=== PATIENT | female | born 1975 | race Caucasian/White ===

== ENCOUNTER 2016-09-27 15:49 | Emergency (ER) | payer MEDICARE, MEDICAID ==
[2016-09-27 16:09] VITALS: BP 123/75
--- NOTE | 2016-09-27 16:43 | UC ---
Respiratory Complaint HPI - HPI Summary HPI Summary: t presents with c/o cough, nasal congestion and myalgia X 1 week. Has history of asthma, is a smoker and is currently not taking any of her asthma medications. - History of Current Complaint Chief Complaint: UCRespiratory Stated Complaint: UPPER RESP Time Seen by Provider: 09/27/16 16:14 Hx Obtained From: Patient Hx Last Menstrual Period: none, had ablation ?: No Onset/Duration: Gradual Onset, Lasting Days Severity Initially: Mild Severity Currently: Mild Character: Cough: Nonproductive Aggravating Factors: Recumbent Position Associated Signs And Symptoms: Positive: URI - Risk Factors Pulmonary Embolism Risk Factors: Smoking Cardiac Risk Factors: Smoking Tuberculosis Risk Factors: Smoking - Allergies/Home Medications Allergies/Adverse Reactions: Allergies Allergy/AdvReac Type Severity Reaction Status Date / Time Amoxicillin Allergy Hives Verified 09/27/16 15:59 Ziprasidone [From Geodon] Allergy Shortness Verified 09/27/16 15:59 of Breath Aripiprazole [From Abilify] AdvReac Intermediate Agitation Verified 09/27/16 15: 59 Nortriptyline AdvReac Intermediate Hallucinati Verified 09/27/16 15:59 ons Lactose Intolerance (GI) AdvReac Unknown Unknown Verified 09/27/16 15:59 Reaction Details Home Medications: Home Medications Desvenlafaxine Succinate [Pristiq] 25 mg PO DAILY 09/27/16 [History Confirmed ] Gabapentin CAP(*) [Neurontin 100 mg CAP(*)] 200 mg PO BID 09/27/16 [History Confirmed 09/27/16] Ogomusmmwiaxy-Ghhhcylmiq-Gotef [Day Time/Nite Time Cold/F] 09/27/16 [History] Ptymavfwskzux-Aolrogastw-Mpicq [Nyquil Severe Cold/Flu 5-6.25-10-325 mg/15Ml] 09/27/16 [History] busPIRone TAB* [Buspar TAB *] 15 mg PO BID 09/27/16 [History Confirmed 09/27/16] PMH/Surg Hx/FS Hx/Imm Hx Previously Healthy: Yes Endocrine History Of: Denies: Diabetes, Thyroid Disease Cardiovascular History Of: Denies: Cardiac Disorders, Hypertension, Pacemaker/ICD Respiratory History Of: Reports: Asthma Denies: COPD GI/ History Of: Reports: Kidney Stones Denies: Gastroesophageal Reflux, Renal Disease Neurological History Of: Denies: CVA, Dementia, Seizures Psychological History Of: Reports: Anxiety, Depression, Bipolar Disorder Other History Of: Negative For: Anticoagulant Therapy - Surgical History Surgical History: Yes Surgery Procedure, Year, and Place: uterus ablation - Family History Known Family History: Positive: Other - positive [facility] for URI - Social History Alcohol Use: None Substance Use Type: Cocaine, Heroin, Marijuana, Prescribed Substance Use Comment - Amount & Last Used: no street drugs since December 19, 2013 Smoking Status (MU): Heavy Every Day Tobacco Smoker Type: Cigarettes - Immunization History Most Recent Influenza Vaccination: none Review of Systems Constitutional: Chills Skin: Negative Eyes: Negative ENT: Other - nasal congestion, Respiratory: Cough Cardiovascular: Negative Gastrointestinal: Negative Genitourinary: Negative Motor: Negative Neurovascular: Negative Musculoskeletal: Negative Neurological: Negative Psychological: Negative All Other Systems Reviewed And Are Negative: Yes Physical Exam Triage Information Reviewed: Yes Appearance: Well-Appearing Vital Signs: Initial Vital Signs Temp 98.4 F 09/27/16 16:04 Pulse 122 09/27/16 16:04 Resp 16 09/27/16 16:04 BP 123/75 09/27/16 16:04 Pulse Ox 94 09/27/16 16:04 Vital Signs Reviewed: Yes Eye Exam: Other ENT: Positive: Nasal congestion Neck exam: Normal Respiratory: Positive: Decreased breath sounds - bilateral bases, Wheezing Cardiovascular Exam: Normal Musculoskeletal Exam: Normal Neurological Exam: Normal Psychological Exam: Normal Skin Exam: Normal Diagnostic Evaluation - Laboratory O2 Sat by Pulse Oximetry: 94 Respiratory Course/Dx - Differential Dx/Diagnosis Differential Diagnosis/HQI/PQRI: Bronchitis, Influenza, Other - URI Provider Diagnoses: URI Discharge - Discharge Plan Condition: Stable Disposition: HOME Prescriptions: Albuterol HFA INHALER* [Ventolin HFA Inhaler*] 2 puff INH Q4H PRN #1 mdi PRN Reason: Sob/Wheezing Benzonatate CAP* [Tessalon CAP*] 100 mg PO TID #30 cap Montelukast Sodium TAB* [Singulair TAB*] 10 mg PO BEDTIME #20 tab predniSONE TAB* [Deltasone TAB*] 30 mg PO DAILY #12 tab Patient Education Materials: Asthma (ED), Upper Respiratory Infection (ED) Referrals: Sonia Angulo MD [Primary Care Provider] - Additional Instructions: You have indicated that you are out of your asthma maintenance and rescue medication. I have provided a short term supply for you. You need to follow up with your PCP for management of your asthma.
== END 2016-09-27 16:57 | disposition home or self-care (01) ==
LOC: UCEAST 15:49
DX: J06.9 Acute upper respiratory infection, unspecified (principal); Z88.1 Allergy status to other antibiotic agents; F17.210 Nicotine dependence, cigarettes, uncomplicated
CPT/HCPCS: 87502; 99212; G0463

== ENCOUNTER 2016-10-05 23:50 | Emergency (ER) | payer MEDICARE, MEDICAID ==
[2016-10-06] MEDS ORDERED: HYDROcodone/ACETAMIN 5-325 MG* 1 TAB PO ONE (00:35)
[2016-10-06] MEDS ORDERED: predniSONE TAB* 20 MG PO ONE (00:36)
--- NOTE | 2016-10-06 01:02 | ED ---
Back Pain - HPI Summary HPI Summary: Patient arrives to ED with CC of right sided rib pain after coughing fit. She states she has had upper respiratory symptoms for several days and has recently gotten worse. She has been coughing more and during a coughing fit earlier this evening she felt a "pop" and now is experiencing rib pain. She endorses SOB but denies chest pressure. She has not taken anything for the pain. On exam she is short of breath and wheezy. patient is a smoker. - History of Current Complaint Chief Complaint: EDChestWallPain Stated Complaint: FLU LIKE SYMPTOMS/RT SIDE PAIN Time Seen by Provider: 10/06/16 00:31 Hx Obtained From: Patient Hx Last Menstrual Period: none, had ablation Onset/Duration: Sudden Onset Onset/Duration: Started Minutes Ago Timing: Constant Back Pain Location: Is Discrete @ - right upper rib Severity Initially: Moderate Severity Currently: Moderate Pain Intensity: 6 Pain Scale Used: 0-10 Numeric Character: Sharp Aggravating Symptom(s): Movement, Bending Alleviating Symptom(s): Rest, Position Associated Signs And Symptoms: Positive: Negative - Risk Factors AAA Risk Factors: Negative TAD Risk Factors: Negative Cauda Equina Risk Factors: Negative Epidural Abscess Risk Factors: Negative - Allergies/Home Medications Allergies/Adverse Reactions: Allergies Allergy/AdvReac Type Severity Reaction Status Date / Time Amoxicillin Allergy Hives Verified 09/27/16 15:59 Ziprasidone [From Geodon] Allergy Shortness Verified 09/27/16 15:59 of Breath Aripiprazole [From Abilify] AdvReac Intermediate Agitation Verified 09/27/16 15: 59 Nortriptyline AdvReac Intermediate Hallucinati Verified 09/27/16 15:59 ons Lactose Intolerance (GI) AdvReac Unknown Unknown Verified 09/27/16 15:59 Reaction Details PMH/Surg Hx/FS Hx/Imm Hx Previously Healthy: Yes Endocrine/Hematology History: Denies: Hx Anticoagulant Therapy, Hx Diabetes, Hx Thyroid Disease Cardiovascular History: Denies: Hx Hypertension, Hx Pacemaker/ICD Respiratory History: Reports: Hx Asthma Denies: Hx Chronic Obstructive Pulmonary Disease (COPD) GI History: Reports: Hx Irritable Bowel History: Reports: Hx Kidney Stones Denies: Hx Renal Disease Musculoskeletal History: Reports: Other Musculoskeletal History - arthritis Sensory History: Denies: Hx Contacts or Glasses Opthamlomology History: Denies: Hx Contacts or Glasses Neurological History: Denies: Hx Dementia, Hx Seizures Psychiatric History: Reports: Hx Anxiety, Hx Depression, Hx Bipolar Disorder, Hx Suicide Attempt, Hx Substance Abuse Denies: Hx Eating Disorder - Surgical History Surgery Procedure, Year, and Place: uterus ablation Infectious Disease History: No Infectious Disease History: Denies: Hx Clostridium Difficile, Hx Hepatitis, Hx Human Immunodeficiency Virus (HIV), Hx of Known/Suspected MRSA, Hx Shingles, Hx Tuberculosis, Traveled Outside the [place] in Last 30 Days - Family History Known Family History: Positive: Other - positive [facility] for URI - Social History Occupation: Employed Full-time Lives: With Family Alcohol Use: None Hx Substance Use: Yes Substance Use Type: Reports: Cocaine, Heroin, Marijuana, Prescribed Substance Use Comment - Amount & Last Used: no street drugs since December 19, 2013 Hx Tobacco Use: Yes Smoking Status (MU): Heavy Every Day Tobacco Smoker Type: Cigarettes Review of Systems Constitutional: Negative ENT: Negative Positive: Shortness Of Breath, Cough Positive: no symptoms reported, see HPI Positive: Myalgia - right sided rib pain Skin: Negative Neurological: Negative Psychological: Normal All Other Systems Reviewed And Are Negative: Yes Physical Exam Triage Information Reviewed: Yes Vital Signs On Initial Exam: Initial Vitals Temp Pulse Resp BP Pulse Ox 97.9 F 112 20 144/98 96 10/05/16 23:54 10/05/16 23:54 10/05/16 23:54 10/05/16 23:54 10/05/16 23:54 Vital Signs Reviewed: Yes Appearance: Positive: Well-Appearing, Well-Nourished Skin: Positive: Warm, Skin Color Reflects Adequate Perfusion Head/Face: Positive: Normal Head/Face Inspection Eyes: Positive: EOMI, MEDARDO ENT: Positive: Pharynx normal, TMs normal Neck: Positive: Supple, No Lymphadenopathy Respiratory/Lung Sounds: Positive: Rhonchi, Wheezes Cardiovascular: Positive: RRR Abdomen Description: Positive: Nontender Musculoskeletal: Positive: Limited @, Pain @ - right sided rib pain which does not radiate Neurological: Positive: Normal, Sensory/Motor Intact, Alert, Oriented to Person Place, Time Psychiatric: Positive: Normal - Elliot Coma Scale Coma Scale Total: 15 Diagnostics - Vital Signs Vital Signs Temp Pulse Resp BP Pulse Ox 10/06/16 00:14 101 96 10/06/16 00:13 125/77 10/05/16 23:54 97.9 F 112 20 144/98 96 - Laboratory Lab Statement: Any lab studies that have been ordered have been reviewed, and results considered in the medical decision making process. Back Pain Course/Dx - Course Course Of Treatment: Patient given 50mg prednisone, 10mg hydrocodone. CXR shows possible bronchitis. Will treat with azithromax. CXR read by Dr. Arceo. RIB xray shows no acute fracture. DC with robitussin, prednisone, azithromycin and encouraged her at home albuterol inhaler. Patient agrees with plan. - Diagnoses Differential Diagnosis/HQI/PQRI: Positive: Strain, Sprain, Other - rib pain, rib fracture, acute bronchitis Provider Diagnoses: Rib pain, Cough Discharge - Discharge Plan Condition: Stable Disposition: HOME Prescriptions: Azithromycin TAB* [Zithromax TAB (Z-VALERIANO) 250 mg #6 tabs] 2 tab PO .TODAY, THEN 1 DAILY #1 valeriano guaiFENesin/CODIEN 100MG-10MG* [Robitussin AC 100Mg-10Mg*] 10 ml PO Q4H PRN # 180 udc MDD 60 PRN Reason: Cough predniSONE TAB* [Deltasone TAB*] 40 mg PO DAILY #8 tab MDD 2 Patient Education Materials: Rib Fracture (ED), Acute Bronchitis (ED) Referrals: Sonia Angulo MD [Primary Care Provider] - Additional Instructions: Prednisone for 4 days. Take in the AM. Albuterol inhaler 2 puffs every 4 hours as needed for shortness of breath. Azithromycin x 5 days. Use as directed. Robitussin with codeine for cough. Use as directed. Stop smoking. Drink plenty of fluids. 10+ glasses water or gatorade per day Rest. Ibuprofen 600mg three times daily with meals (this will not interfere with your other medications)
[2016-10-06] MEDS ORDERED: Azithromycin TAB* 250 MG PO ONE (01:17)
[2016-10-06] MEDS ORDERED: guaiFENesin/CODIEN 100MG-10MG* 5 ML UDC PO ONE (01:21)
[2016-10-06 01:45] VITALS: BP 120/93
--- NOTE | 2016-10-06 07:58 | RAD ---
INDICATION: Right rib pain COMPARISON: None TECHNIQUE: Multiple views of the ribs were obtained. FINDINGS: Bones: There is no evidence of acute rib fracture. LUNGS: The lungs are clear. There is no pneumothorax. Pleural spaces: There is no evidence of hemothorax. Other: None IMPRESSION: NO ACUTE RIB FRACTURE.
== END 2016-10-06 01:45 | disposition home or self-care (01) ==
LOC: ED 23:50
DX: R07.81 Pleurodynia (principal); M79.1 Myalgia; R06.02 Shortness of breath; R05 Cough; F17.210 Nicotine dependence, cigarettes, uncomplicated
CPT/HCPCS: 99282; A9270-GY; J7512

== ENCOUNTER 2018-01-18 23:36 | Emergency (ER) | payer MEDICARE, MEDICAID ==
[2018-01-19] MEDS ORDERED: NS 0.9% 1000 ML* 1,000 ML IV ONE (01:32)
[2018-01-19] MEDS ORDERED: Clindamycin 900 MG IVPREMIX(* 900 MG/50 ML SDV IV ONE (01:36)
[2018-01-19] MEDS ORDERED: Ketorolac INJ* 30 MG/ML 1 ML VIAL IV PUSH ONE (01:40)
[2018-01-19 02:20] LABS: ABS Basophils 0.1 10^3/ul (0-0.2); ABS Eosinophils 0.2 10^3/ul (0-0.6); ABS Lymphocytes 3.5 10^3/ul (1.0-4.8); ABS Monocytes 0.8 10^3/ul (0-0.8); ABS Neutrophils 7.9 10^3/ul (1.5-7.7); ABS Nucleated RBC 0 10^3/ul; Eosinophil % 1.7 % (0-6); Hematocrit 42 % (35-47); Hemoglobin 14.5 g/dl (12.0-16.0); Lymphocyte % 27.8 % (25-47); Mean Corpuscular HGB Conc 35 g/dl (31-36); Mean Corpuscular Hemoglobin 31 pg (27-31); Mean Corpuscular Volume 89 fL (80-97); Mean Platelet Volume 9.1 um3 (7.4-10.4); Nucleated Red Blood Cells % 0; Platelet Count 268 10^3/ul (150-450); Red Blood Count 4.74 10^6/ul (4.00-5.40); Red Cell Distribution Width 13 % (10.5-15); White Blood Count 12.5 10^3/ul (3.5-10.8)
[2018-01-19 02:36] LABS: EGFR Non-African American 88.8 (>60)
[2018-01-19 04:26] VITALS: BP 125/94
--- NOTE | 2018-01-23 23:15 | ED ---
Ana Paula Edmonds Jacob, scribed for Gloria Khanna MD on 01/19/18 at 0329 . Breast Complaint - HPI Summary HPI Summary: Pt is a 42 y/o female c/o left breast yellow discharge onsetting today. Pt also reports pain onsetting two days ago and erythema. Per triage, pain is described as aching and rated 5/10. She notes that her nipples inverted inwards a week ago. Pt claims no Hx of breast surgery and is not breast feeding. Per triage, she took motrin, 600 mg, at 2100 today. - History of Current Complaint Hx Obtained From: Patient Breast Chief Complaint: Pain, Left, Other: - yellow discharge Onset/Duration: Started Days Ago - yellow discharge began today, pain 2 days ago , Still Present Breast Pain Aggravating Factors: Nothing Breast Pain Alleviating Factors: Nothing Breast Associated Signs/Symptoms: Discharge, Redness, Other: - left breast pain - Allergy/Home Medications Allergies/Adverse Reactions: Allergies Allergy/AdvReac Type Severity Reaction Status Date / Time amoxicillin Allergy Hives Verified 01/18/18 23:42 aripiprazole [From Abilify] Allergy Agitation Verified 01/18/18 23:42 lactose Allergy Unknown Verified 01/18/18 23:42 Reaction Details nortriptyline Allergy Hallucinati Verified 01/18/18 23:42 ons ziprasidone [From Geodon] Allergy Shortness Verified 01/18/18 23:42 of Breath Home Medications: Home Medications Pregabalin CAP(*) [Lyrica CAP(*)] 25 mg PO BID 01/19/18 [History Confirmed 01/19] PMH/Surg Hx/FS Hx/Imm Hx Endocrine/Hematology History: Denies: Hx Anticoagulant Therapy, Hx Diabetes, Hx Thyroid Disease Cardiovascular History: Denies: Hx Hypertension, Hx Pacemaker/ICD Respiratory History: Reports: Hx Asthma Denies: Hx Chronic Obstructive Pulmonary Disease (COPD) GI History: Reports: Hx Irritable Bowel History: Reports: Hx Kidney Stones Denies: Hx Renal Disease Musculoskeletal History: Reports: Other Musculoskeletal History - arthritis Sensory History: Denies: Hx Contacts or Glasses Opthamlomology History: Denies: Hx Contacts or Glasses Neurological History: Denies: Hx Dementia, Hx Seizures Psychiatric History: Reports: Hx Anxiety, Hx Depression, Hx Bipolar Disorder, Hx Suicide Attempt, Hx Substance Abuse Denies: Hx Eating Disorder - Surgical History Surgery Procedure, Year, and Place: uterus ablation Infectious Disease History: No Infectious Disease History: Denies: Hx Clostridium Difficile, Hx Hepatitis, Hx Human Immunodeficiency Virus (HIV), Hx of Known/Suspected MRSA, Hx Shingles, Hx Tuberculosis, Traveled Outside the [place] in Last 30 Days - Family History Known Family History: Positive: Other - positive [facility] for URI - Social History Alcohol Use: None Hx Substance Use: Yes Substance Use Type: Reports: None Substance Use Comment - Amount & Last Used: no street drugs since December 19, 2013 Hx Tobacco Use: Yes Smoking Status (MU): Heavy Every Day Tobacco Smoker Type: Cigarettes Review of Systems Negative: Fever Skin: Other - yellow discharge, erythema, retraction, and pain of left breast All Other Systems Reviewed And Are Negative: Yes Physical Exam - Summary Physical Exam Summary: VITAL SIGNS: Reviewed. GENERAL: Patient is a well-developed and nourished female who is lying comfortable in the stretcher. Patient is not in any acute respiratory distress. HEAD AND FACE: No signs of trauma. No ecchymosis, hematomas or skull depressions. No sinus tenderness. EYES: PERRLA, EOMI x 2, No injected conjunctiva, no nystagmus. EARS: Hearing grossly intact. Ear canals and tympanic membranes are within normal limits. MOUTH: Oropharynx within normal limits. NECK: Supple, trachea is midline, no adenopathy, no JVD, no carotid bruit, no c- spine tenderness, neck with full ROM. CHEST: Symmetric, no tenderness at palpation LUNGS: Clear to auscultation bilaterally. No wheezing or crackles. CVS: Regular rate and rhythm, S1 and S2 present, no murmurs or gallops appreciated. ABDOMEN: Soft, non-tender. No signs of distention. No rebound no guarding, and no masses palpated. Bowel sounds are normal. EXTREMITIES: FROM in all major joints, no edema, no cyanosis or clubbing. NEURO: Alert and oriented x 3. No acute neurological deficits. Speech is normal and follows commands. SKIN: Tenderness, erythema, and warmness present over inner upper and inner lower quadrant of left breast. Pt has nipple retraction over left breast. CONCEPCION Alva tech, chaperoned PE. Triage Information Reviewed: Yes Vital Signs On Initial Exam: Initial Vitals Temp Pulse Resp BP Pulse Ox 97.6 F 116 18 137/90 96 01/18/18 23:38 01/18/18 23:38 01/18/18 23:38 01/18/18 23:38 01/18/18 23:38 Vital Signs Reviewed: Yes Diagnostics - Vital Signs Vital Signs Temp Pulse Resp BP Pulse Ox 01/19/18 02:33 93 135/83 97 01/19/18 02:00 98 98 01/19/18 01:31 97 01/19/18 01:00 93 97 01/19/18 00:57 98 132/103 98 01/18/18 23:38 97.6 F 116 18 137/90 96 - Laboratory Lab Results: Lab Results 01/19/18 01/19/18 01/19/18 Range/Units 02:08 02:08 02:19 WBC 12.5 H (3.5-10.8) 10^3/ul RBC 4.74 (4.00-5.40) 10^6/ul Hgb 14.5 (12.0-16.0) g/dl Hct 42 (35-47) % MCV 89 (80-97) fL MCH 31 (27-31) pg MCHC 35 (31-36) g/dl RDW 13 (10.5-15) % Plt Count 268 (150-450) 10^3/ul MPV 9.1 (7.4-10.4) um3 Neut % (Auto) 63.1 (38-83) % Lymph % (Auto) 27.8 (25-47) % [place] % (Auto) 6.6 (0-7) % Eos % (Auto) 1.7 (0-6) % Baso % (Auto) 0.8 (0-2) % Absolute Neuts (auto) 7.9 H (1.5-7.7) 10^3/ul Absolute Lymphs (auto) 3.5 (1.0-4.8) 10^3/ul Absolute Monos (auto) 0.8 (0-0.8) 10^3/ul Absolute Eos (auto) 0.2 (0-0.6) 10^3/ul Absolute Basos (auto) 0.1 (0-0.2) 10^3/ul Absolute Nucleated RBC 0 10^3/ul Nucleated RBC % 0 Sodium 136 (135-145) mmol/L Potassium TNP Chloride 105 (101-111) mmol/L Carbon Dioxide 21 L (22-32) mmol/L Anion Gap 10 (2-11) mmol/L BUN 10 (6-24) mg/dL Creatinine 0.72 (0.51-0.95) mg/dL Est GFR ( Amer) 107.5 (>60) Est GFR (Non-Af Amer) 88.8 (>60) BUN/Creatinine Ratio 13.9 (8-20) Glucose 126 H (70-100) mg/dL Lactic Acid 1.2 (0.5-2.0) mmol/L Calcium 9.6 (8.6-10.3) mg/dL Total Bilirubin 0.40 (0.2-1.0) mg/dL AST TNP ALT 18 (7-52) U/L Alkaline Phosphatase 88 (34-104) U/L C-Reactive Protein (<8.01) mg/L Total Protein 7.1 (6.4-8.9) g/dL Albumin 3.8 (3.2-5.2) g/dL Globulin 3.3 (2-4) g/dL Albumin/Globulin Ratio 1.2 (1-3) 01/19/18 Range/Units 02:44 WBC (3.5-10.8) 10^3/ul RBC (4.00-5.40) 10^6/ul Hgb (12.0-16.0) g/dl Hct (35-47) % MCV (80-97) fL MCH (27-31) pg MCHC (31-36) g/dl RDW (10.5-15) % Plt Count (150-450) 10^3/ul MPV (7.4-10.4) um3 Neut % (Auto) (38-83) % Lymph % (Auto) (25-47) % [place] % (Auto) (0-7) % Eos % (Auto) (0-6) % Baso % (Auto) (0-2) % Absolute Neuts (auto) (1.5-7.7) 10^3/ul Absolute Lymphs (auto) (1.0-4.8) 10^3/ul Absolute Monos (auto) (0-0.8) 10^3/ul Absolute Eos (auto) (0-0.6) 10^3/ul Absolute Basos (auto) (0-0.2) 10^3/ul Absolute Nucleated RBC 10^3/ul Nucleated RBC % Sodium (135-145) mmol/L Potassium 3.4 L Chloride (101-111) mmol/L Carbon Dioxide (22-32) mmol/L Anion Gap (2-11) mmol/L BUN (6-24) mg/dL Creatinine (0.51-0.95) mg/dL Est GFR ( Amer) (>60) Est GFR (Non-Af Amer) (>60) BUN/Creatinine Ratio (8-20) Glucose (70-100) mg/dL Lactic Acid (0.5-2.0) mmol/L Calcium (8.6-10.3) mg/dL Total Bilirubin (0.2-1.0) mg/dL AST 13 ALT (7-52) U/L Alkaline Phosphatase (34-104) U/L C-Reactive Protein 81.97 H (<8.01) mg/L Total Protein (6.4-8.9) g/dL Albumin (3.2-5.2) g/dL Globulin (2-4) g/dL Albumin/Globulin Ratio (1-3) Result Diagrams: 01/19/18 02:08 01/19/18 02:44 Lab Statement: Any lab studies that have been ordered have been reviewed, and results considered in the medical decision making process. Breast Pain Course/Dx - Course Assessment/Plan: Pt is a 42 y/o female c/o left breast yellow discharge onsetting today. Pt also reports pain onsetting two days ago and erythema, pain described as aching and rated 5/10. PE showed tenderness, erythema, and warmness over inner upper and inner lower quadrant of left breast. She also had nipple retraction over left breast. Blood culture sent. Over ED course, pt received clindamycin 900 mg, ketorolac 30 mg, and Ns 0.9% 1000ml. Symptoms are most likely periductal mastitis, she does not have any nipple discharge that can be sent in. Pt was diagnosed w/ periductal mastitis of left breast. She was discharged with Rx for Clindamycin and told to follow up w/ surgeon and PCP in 1 -2 days. Allergies noted. - Diagnoses Provider Diagnoses: Periductal mastitis of left breast Discharge - Sign-Out/Discharge Documenting (check all that apply): Discharge/Admit/Transfer - discharge - Discharge Plan Condition: Stable Disposition: HOME Prescriptions: Clindamycin Cap(NF) [Clindamycin Cap 300 mg Cap(NF)] 300 mg PO Q6H #40 cap Ibuprofen TAB* [Motrin TAB* 800 MG] 800 mg PO Q6H PRN #30 tab PRN Reason: Pain Patient Education Materials: Mastitis (ED) Referrals: Sonia Angulo MD [Primary Care Provider] - 2 Days Keven Pedroza MD [Medical Doctor] - 2 Days Additional Instructions: Return to ED for any new or worsening symptoms. Follow up w/ surgeon in 1-2 days. Take antibiotics as directed. The documentation as recorded by the Ana Paula fernandez Jacob accurately reflects the service I personally performed and the decisions made by Clemencia huang Abdul, MD.
== END 2018-01-19 04:29 | disposition home or self-care (01) ==
LOC: ED 23:36
DX: N61.0 Mastitis without abscess (principal); F17.210 Nicotine dependence, cigarettes, uncomplicated; Z88.0 Allergy status to penicillin; Z87.09 Personal history of other diseases of the respiratory system
CPT/HCPCS: 36415; 80053; 83605; 85025; 86140; 87040; 96374; 96375; 99283; J1885